=== PATIENT | female | born 1965 | race Native Hawaiian/Other Pacific Islander ===

== ENCOUNTER 2020-08-24 17:52 | Emergency (ER) | payer OTHER ==
[~2020-08-24] VITALS: Ht 152.4 cm; Wt 131.5 kg
[2020-08-24 17:52] VITALS: BP 139/56; TEMP 97.1
[2020-08-24 18:15] LABS: PLATELET COUNT 210 K/uL (152-353)
[2020-08-24 18:21] LABS: POTASSIUM 3.6 mmol/L (3.6-5.2)
[2020-08-24] MEDS ORDERED: DOVATO 50-300 M1 TAB PO (21:06)
[2020-08-24] MEDS ORDERED: EXELON9.5 MG/24 TOP (21:07)
[2020-08-24] MEDS ORDERED: GABA100C2 PO (21:08)
[2020-08-24] MEDS ORDERED: PRAVACHOL20 MG PO (21:09)
[2020-08-24] MEDS ORDERED: PANTOPRAZOLE 40MG TA PO (21:09)
[2020-08-24] MEDS ORDERED: FLUOXETINE40 MG PO (21:10)
[2020-08-24] MEDS ORDERED: RISP0.5T2 PO (21:10)
[2020-08-24] MEDS ORDERED: TRAZODONE HYDR100 MG PO (21:11)
[2020-08-24] MEDS ORDERED: RISP1TAB PO (21:11)
== END 2020-08-24 20:20 | disposition other institution (70) ==
LOC: ED 17:52
PROVIDERS: Family Medicine
DX: F03.91 Unspecified dementia, unspecified severity, with behavioral disturbance (principal); Z11.52 Encounter for screening for COVID-19; Z04.6 Encounter for general psychiatric examination, requested by authority
CPT/HCPCS: 80053; 85027; 87635; 93005; 99283; U0003